=== PATIENT | female | born 1965 | race Caucasian/White ===

== ENCOUNTER 2018-09-15 13:45 | Observation (INO) ==
[2018-09-15] MEDS ORDERED: ASPIRIN 81 MG TAB.CHEW PO ONE (14:13)
[2018-09-15 14:14] LABS: Hematocrit 44.3 % (37.0-47.0); Hemoglobin 15.1 gm/dL (12.5-16.0); Mean Cell Volume 91.2 fl (78-100); Mean Corpuscular Hemoglobin 31.1 pg (27-31); Mean Corpuscular Hgb Conc 34.1 g/dl (32-36); Mean Platelet Volume 9.8 fl (8-12.5); Platelet Count 374 K/mm3 (150-450); Red Blood Count 4.86 M/mm3 (4.2-5.4); White Blood Count 14.5 K/mm3 (4.0-10.5)
--- NOTE | 2018-09-15 14:14 | ERNOTE ---
Chest Pain/Cardiac HPI Date of Service: 09/15/18 Chief Complaint: Chest Pain Time Seen by Provider: 09/15/18 14:01 Source: patient, RN notes reviewed, past records Exam Limitations: no limitations Immunizations: IMMUNIZATION HX Immunizations Up to Date Yes History of Influenza Vaccine No Hx Pneumococcal Vaccination No Allergies/Adverse Reactions: Allergies erythromycin base Allergy (Intermediate, Verified 08/04/18 09:27) severe nausea, and vomiting strawberry Allergy (Intermediate, Verified 08/04/18 09:27) rash seasonal allergies Adverse Reaction (Intermediate, Uncoded 03/17/18 15:35) sneezing, rhinitis Home Medications: HOME MEDICATIONS Multivitamin [One Daily Essential] 1 ea PO DAILY 01/08/16 [Last Taken Unknown] blood sugar diagnostic strips See Dose Instructions .ROUTE .MEDSUPPLY #100 ea 02/11/18 [Last Taken Unknown] insulin detemir (U- 100) 100 unit/mL subcutaneous solution 45 unit SUB-Q BID #10 ml 02/11/18 [Last Taken Unknown] aspirin 81 mg tablet,delayed release 81 mg PO DAILY 03/17/18 [Last Taken Unknown] cetirizine 10 mg tablet 10 mg PO HS tab 03/17/18 [Last Taken Unknown] cholecalciferol (vitamin D3) 2,000 unit capsule 2,000 unit PO DAILY 03/17/18 [Last Taken Unknown] clopidogrel 75 mg tablet 75 mg PO DAILY 03/17/18 [Last Taken Unknown] fluticasone 50 mcg/actuation nasal spray,suspension 1 spray BENY DAILY PRN 03/17/18 [Last Taken Unknown] ipratropium 20 mcg-albuterol 100 mcg/actuation mist for inhalation 1 puff IH .COMPLEX 03/17/18 [Last Taken Unknown] lancets 28 gauge See Dose Instructions .ROUTE .MEDSUPPLY #25 ea 03/17/18 [Last Taken Unknown] lisinopril 5 mg tablet 5 mg PO HS tab 03/17/18 [Last Taken Unknown] blood-glucose meter kit See Dose Instructions .ROUTE .MEDSUPPLY #1 ea 05/10/18 [Last Taken Unknown] insulin lispro (U- 100) 100 unit/mL subcutaneous solution 22 unit SUB-Q AC #10 ml 05/10/18 [Last Taken Unknown] insulin syringe with safety needle 0.5 mL 30 gauge x 12/08" See Dose Instructions .ROUTE .MEDSUPPLY #500 ea 05/12/18 [Last Taken Unknown] metformin 500 mg tablet 1,000 mg PO BID #180 tab 05/12/18 [Last Taken Unknown] meloxicam 15 mg tablet 15 mg PO DAILY #90 tab 05/13/18 [Last Taken Unknown] atorvastatin 40 mg tablet 40 mg PO HS #30 tab 07/27/18 [Last Taken Unknown] gabapentin 300 mg capsule 300 mg PO QPM #30 cap 08/04/18 [Last Taken Unknown] gabapentin 600 mg tablet 600 mg PO TID #90 tab 08/04/18 [Last Taken Unknown] alprazolam 1 mg tablet 1 mg PO .QD PRN #30 tab 08/31/18 [Last Taken Unknown] lamotrigine 200 mg tablet 300 mg PO DAILY #45 tab 08/31/18 [Last Taken Unknown] sertraline 100 mg tablet See Rx Instructions PO DAILY 21 Days #26 tab 08/31/18 [Last Taken Unknown] venlafaxine ER 37.5 mg capsule,extended release 24 hr See Rx Instructions PO DAILY #60 cap 08/31/18 [Last Taken Unknown] Narrative: Tessa is a 53 year old female brought to the ED from the clinic for chest pain. This began early this morning. Her blood sugar was 49 at that time. She ate and felt better for a short time, but then her pain returned. She was to be seen for a routine visit today and had been fasting for lab work. She reports having anxiety about going to the doctor. She has had chest pain related to panic attacks in the past, but she has also had a CA. Date (Duration): 09/15/18 Time (Timing): 04:00 Timing: constant Severity/Quality: moderate, aching Location: substernal Chest Pain Radiation: no radiation Activities at Onset: none Modifying Factors - Improves: Present: eating Modifying Factors - Worsens: Present: breathing, coughing Nitro Today/Relief: no nitro taken today Aspirin Treatment Today: 81 mg x 1 Associated Symptoms: Present: denies symptoms Prior Chest Pain/Cardiac Workup: Reports: heart attack Prior Treatment: Denies: recently seen Review of Systems - Review of Systems Constitutional: Absent: recent illness, fever, chills EYE: Present: no symptoms reported ENT: Absent: nose congestion, sore throat Respiratory: Absent: shortness of breath, cough Cardiology: Present: chest pain. Absent: palpitations, syncope, edema Gastrointestinal/Abdominal: Absent: nausea, vomiting, abdominal pain Genitourinary: Absent: frequency, dysuria Musculoskeletal: Absent: muscle pain, joint pain Skin: Absent: rash, lesions Neurological: Absent: headache, dizziness/light-headedness Endocrine: Present: no symptoms reported Hematologic/Lymphatic: Absent: easy bruising, easy bleeding Psych: Present: anxiety Medical History (Last Reviewed 09/15/18 @ 15:53 by Chitra De La Paz NP) Borderline personality disorder (Chronic) Per patient history PTSD (post-traumatic stress disorder) (Chronic) Tobacco abuse (Chronic) PAD (peripheral artery disease) (Chronic) Diabetic neuropathy (Chronic) Onset Date: ~1989 Diabetes mellitus, type II (Chronic) Surgical History: Surgical History (Last Reviewed 09/15/18 @ 15:53 by Chitra De La Paz NP) History of appendectomy History of cholecystectomy History of heart artery stent Family History: Family History (Last Reviewed 09/15/18 @ 15:53 by Chitra De La Paz NP) Mother , 81 Hypertension Diabetes Coronary artery disease stents Arthritis History of back surgery Sister , 59 Diabetes Hypertension, Onset Age: 55 heart problems Depression, Onset Age: 49 Father , 70 Diabetes Hypertension Coronary artery disease Alzheimers disease Social History: Preferred Language Monegasque Smoking Status Current every day smoker Smoking packs per day 1.5 Psych History Hx of Bipolar Disorder Alcohol Use rarely Drug Use none (Last Updated 09/05/18 @ 16:58 by GONZALO Malone) No Social History Section defined Physical Exam - Physical Exam General Appearance: Present: alert, no apparent distress, obese Head Exam: Present: normal inspection Eye Exam: Normal inspection: bilateral Ears, Nose, Throat: Present: normal ENT inspection, normal pharynx Neck: Present: normal inspection, nontender, supple, full range of motion Respiratory: Present: no respiratory distress, normal breath sounds, no accessory muscle use, chest nontender, lungs clear Cardiovascular/Chest: Present: regular rate, rhythm, no murmur, normal peripheral pulses Gastrointestinal/Abdominal: Present: nontender, nondistended, soft Extremity Exam: Present: normal inspection, no edema Neurological Exam: Present: alert, oriented, normal mood/affect, no mo tor/sensory deficits Skin Exam: Present: normal color, warm/dry Progress - Results and Orders Patient's Lab Results:: I have reviewed the patient's lab results. - Vital Signs Patient's Vital Signs:: I have reviewed the patient's vital signs. Vital Signs: Vital Signs 09/15/18 13:53 09/15/18 13:57 Temperature 36.6 C Pulse Rate 89 90 Respiratory Rate 20 O2 Sat by Pulse Oximetry 96 - EKG EKG #1 EKG: NSR, no ST T wave changes - from 01/08/16 EKG read: Reviewed by me - X-Ray X-Ray #1 X-Ray: chest Interpretation: Reviewed by me X-ray Comments: No acute cardiopulmonary process noted - Progress/Reassessment Chief Complaint: Chest Pain Progress:: Improved Plan - Plan Plan: Blood glucose was initially 56. The patient ate and this improved, but she continued to have chest pain. She was given nitro sublingual x3. The pain improved from a 5 to a 2. Initial troponin and EKG were unremarkable. WBC is elevated at 14,500 but after reviewing her chart this appears to be chronic. Due to her prior cardiac history, she will be admitted to observation status to Dr. Nagy (her PCP) to r/o CA. Departure Clinical Impression: Chest pain, rule out acute myocardial infarction - Departure Disposition: Still a patient Condition: Stable Referrals: Tessa Nagy MD [Primary Care Provider] -
[2018-09-15 14:17] LABS: Total Cells Counted 100
[2018-09-15] MEDS: NITROGLYCERIN 0.4 MG/TAB BTL SL PRN ×3 (14:19→14:56)
[2018-09-15 14:30] LABS: ALT 60 U/L (19-67); AST 48 U/L (0-48); Albumin * 3.4 gm/dl (3.4-5.0); Alkaline Phosphatase * 157 U/L (50-170); Anion Gap 16.7 mmol/L (6.8-13.8); BUN/Creatinine Ratio 12.7 (9.0-21.6); Bilirubin, Total 0.1 mg/dL (0.0-1.1); Blood Urea Nitrogen 9 mg/dL (3-23); Ca. Corrected For Albumin 9.9 mg/dL (8.4-10.2); Calcium * 9.7 mg/dL (7.9-10.9); Carbon Dioxide 26.8 mmol/L (24-32.6); Chloride 104 mmol/L (97-106); Glucose * 70 mg/dL (70-110); Potassium 3.5 mmol/L (3.4-4.6); Sodium 144 mmol/L (132-142); Total Protein 7.1 gm/dL (6.2-8.2); Troponin I Less than 0.017 ng/mL (0.00-0.10)
[2018-09-15 14:37] LABS: Atypical (Reactive) Lymph 18 % (0-2); Eosinophil 1 % (0-3); Lymphocyte 39 % (20-51); Monocyte 3 % (0-9); Neutrophil 39 % (42-75); Neutrophil # 5.7 K/mm3 (1.3-6.0)
[2018-09-15 14:38] LABS: Platelet Estimate Normal (NORMAL)
[2018-09-15 14:40] LABS: RBC Morphology Normal (NORMAL)
[2018-09-15 15:46] LABS: Urine Bilirubin Negative (NEGATIVE); Urine Ketone Negative (NEGATIVE); Urine Nitrite Negative (NEGATIVE); Urine Protein Negative (NEGATIVE); Urine Specific Gravity <=1.005 SP.GR. (1.005-1.010); Urine Urobilinogen Normal (NORMAL); Urine pH 6.5 pH (5.0-7.0)
[2018-09-15 15:54] LABS: Urine Appearance Clear (CLEAR); Urine Bacteria None Seen; Urine Blood 5 /ul (NEGATIVE); Urine Color Yellow; Urine RBC 0-5 /hpf (0-5); Urine WBC None Seen /hpf (0-5)
[2018-09-15] MEDS ORDERED: ACETAMINOPHEN 500 MG TABLET PO PRN (17:04)
--- NOTE | 2018-09-15 17:33 | HP ---
Chief Complaint - Chief Complaint Date of Service: 09/15/18 Time of Service: 17:21 Chief Complaint: I have chest pain and shortness of breath since this morning. History of Present Illness: 53-year-old female with past medical history of hypertension, peripheral artery disease, diabetic neuropathy, hyperlipidemia, coronary artery disease, morbid obesity, active smoker, depression, chronic pain, anxiety disorder, COPD, was brought to the ER from her primary care physician's office due to chest pain 6 out of 10 in intensity accompanied by shortness of breath. Patient reports that the chest pain started early this morning after waking up and preparing to go to her doctor's office for scheduled visit. Patient started fasting since yesterday anticipating lab work in the morning and says that she was more anxious than usual due to her fear of doctors offices. She says shortly after waking up she started having retrosternal chest pain right in the middle of the chest but the radiating under her left breast into her left flank, accompanied by shortness of breath of intermittent nature. She proceeded to go to her doctor's office but when she got there she suddenly became dizzy and her chest pain intensified. Patient was taken to the ER where EKG was performed which did not demonstrate any concerning abnormalities and a full cardiac workup was ordered. Medical History (Last Reviewed 09/15/18 @ 16:50 by Viola Newberry RN) Borderline personality disorder (Chronic) Per patient history PTSD (post-traumatic stress disorder) (Chronic) Tobacco abuse (Chronic) PAD (peripheral artery disease) (Chronic) Diabetic neuropathy (Chronic) Onset Date: ~1989 Diabetes mellitus, type II (Chronic) Surgical History: Surgical History (Last Reviewed 09/15/18 @ 16:50 by Viola Newberry RN) History of appendectomy History of cholecystectomy History of heart artery stent Family History: Family History (Last Reviewed 09/15/18 @ 16:50 by Viola Newberry RN) Mother , 81 Hypertension Diabetes Coronary artery disease stents Arthritis History of back surgery Sister , 59 Diabetes Hypertension, Onset Age: 55 heart problems Depression, Onset Age: 49 Father , 70 Diabetes Hypertension Coronary artery disease Alzheimers disease Social History: Patient Lives/Resources Home Utilized Preferred Language Tuval[place] Do you have any restoration or No cultural preference? Smoking Status Current every day smoker Have you smoked in the past 12 Yes months Smoking packs per day 1.5 Do you dip or chew tobacco No Psych History Hx of Bipolar Disorder Alcohol Use rarely Drug Use none (Last Updated 09/05/18 @ 16:58 by GONZALO Malone) No Social History Section defined Peds Patient Hx - Developmental: No Pertinent Hx Peds Patient Hx - Medical: No Pertinent Hx Peds Patient Hx - Cardiac/Respiratory: No Pertinent Hx Peds Patient Hx - Surgical: No Surgical History Patient History - Cancer: No Hx of Cancer Review Of Systems (GEN) - Review of Systems Generalized/Overall Review: Present: No Symptoms Reported EENTM: Present: No Symptoms Reported Respiratory: Present: Shortness of Breath Cardiac: Present: Chest Pain Abdominal: Present: No Symptoms Reported Genitourinary: Present: No Symptoms Reported Musculoskeletal: Present: No Symptoms Reported Neurological: Present: Anxiety Skin: Present: No Symptoms Reported Immunizations: IMMUNIZATION HX Immunizations Up to Date Yes History of Influenza Vaccine No Hx Pneumococcal Vaccination No Allergies/Adverse Reactions: Allergies Allergy/AdvReac Type Severity Reaction Status Date / Time erythromycin base Allergy Intermediate severe Verified 08/04/18 09:27 nausea, and vomiting strawberry Allergy Intermediate rash Verified 08/04/18 09:27 seasonal allergies AdvReac Intermediate sneezing, Uncoded 03/17/18 15:35 rhinitis Home Medications: HOME MEDICATIONS Multivitamin [One Daily Essential] 1 ea PO DAILY 01/08/16 [Last Taken Unknown] blood sugar diagnostic strips See Dose Instructions .ROUTE .MEDSUPPLY #100 ea 02/11/18 [Last Taken Unknown] insulin detemir (U- 100) 100 unit/mL subcutaneous solution 45 unit SUB-Q BID #10 ml 02/11/18 [Last Taken Unknown] aspirin 81 mg tablet,delayed release 81 mg PO DAILY 03/17/18 [Last Taken Unknown] cetirizine 10 mg tablet 10 mg PO HS tab 03/17/18 [Last Taken Unknown] cholecalciferol (vitamin D3) 2,000 unit capsule 2,000 unit PO DAILY 03/17/18 [Last Taken Unknown] clopidogrel 75 mg tablet 75 mg PO DAILY 03/17/18 [Last Taken Unknown] fluticasone 50 mcg/actuation nasal spray,suspension 1 spray BENY DAILY PRN 03/17/18 [Last Taken Unknown] ipratropium 20 mcg-albuterol 100 mcg/actuation mist for inhalation 1 puff IH .COMPLEX 03/17/18 [Last Taken Unknown] lancets 28 gauge See Dose Instructions .ROUTE .MEDSUPPLY #25 ea 03/17/18 [Last Taken Unknown] lisinopril 5 mg tablet 5 mg PO HS tab 03/17/18 [Last Taken Unknown] blood-glucose meter kit See Dose Instructions .ROUTE .MEDSUPPLY #1 ea 05/10/18 [Last Taken Unknown] insulin lispro (U- 100) 100 unit/mL subcutaneous solution 22 unit SUB-Q AC #10 ml 05/10/18 [Last Taken Unknown] insulin syringe with safety needle 0.5 mL 30 gauge x 12/08" See Dose Instructions .ROUTE .MEDSUPPLY #500 ea 05/12/18 [Last Taken Unknown] metformin 500 mg tablet 1,000 mg PO BID #180 tab 05/12/18 [Last Taken Unknown] meloxicam 15 mg tablet 15 mg PO DAILY #90 tab 05/13/18 [Last Taken Unknown] atorvastatin 40 mg tablet 40 mg PO HS #30 tab 07/27/18 [Last Taken Unknown] gabapentin 600 mg tablet 600 mg PO TID #90 tab 08/04/18 [Last Taken Unknown] lamotrigine 200 mg tablet 300 mg PO DAILY #45 tab 08/31/18 [Last Taken Unknown] Alprazolam 1 mg PO DAILY PRN 09/15/18 [Last Taken Unknown] Sertraline HCl [Zoloft] 100 mg PO DAILY 09/15/18 [Last Taken Unknown] Exam - Exam Vital Signs: Vital Signs - Last Taken Temp 36.5 C 09/15/18 16:50 Pulse 88 09/15/18 16:50 Resp 16 09/15/18 16:50 BP 181/81 H 09/15/18 16:50 Pulse Ox 92 L 09/15/18 16:50 Constitutional: Present: Alert, Oriented x3, Cooperative, Well developed, Well nourished, No distress, Morbidly obese ENT Exam: Present: normal ENT inspection, hearing grossly normal, pharynx normal, TMs normal Eye Exam: bilateral eye: normal inspection, PERRL, EOMI Neck: Present: non-tender, full range of motion, supple, normal inspection, trachea midline Back Exam: Present: normal inspection, no CVA tenderness, no vertebral tenderness Breasts: Present: Exam deferred Respiratory: Present: no respiratory distress, crackles Cardiovascular/Chest: Present: regular rate, rhythm, no chest tenderness, edema - Bilateral pedal edema Peripheral Pulses: carotid (R): 3+, carotid (L): 3+, femoral (R): 3+, femoral (L): 3+, dorsalis-pedis (R): 3+, dorsalis-pedis (L): 2+, radial (R): 3+, radial (L): 3+ Abdomen: Present: Normal bowel sounds, soft, nontender, nondistended, no rebound tenderness, no hepatospenomegaly, no masses, obese /Rectal: Present: Exam deferred Extremity: Present: normal range of motion, non-tender, normal inspection, no calf tenderness, pedal edema Skin Exam: Present: normal color, warm/dry, no cyanosis Lymphatic: Present: no adenopathy Neurologic: Present: manager nursing home II-XII nml as tested, normal cerebellar test, no motor/sensory deficits, alert, normal mood/affect, oriented x 3 Appearance: Present: appropriate appearance, appropriate insight, neat, no memory impairment Eye contact: Present: cooperative, good eye contact, normal speech Thoughts: Present: normal thought pattern Diagnostic Studies: Abnormal Lab Results 09/15/18 09/15/18 09/15/18 Range/Units 14:05 14:05 15:39 WBC 14.5 H (4.0-10.5) K/mm3 MCH 31.1 H (27-31) pg Neutrophils % (Manual) 39 L (42-75) % Lymphocytes # (Manual) 5.7 H (1.5-3.5) k/mm3 Atypic/Reactive Lymphs 18 H (0-2) % Sodium 144 H (132-142) mmol/L Plasma Sodium 144 H (130-142) mmol/L Anion Gap 16.7 H (6.8-13.8) mmol/L Urine Blood 5 H (NEGATIVE) /ul Laboratory Results WBC 14.5 K/mm3 (4.0-10.5) H 09/15/18 14:05 RBC 4.86 M/mm3 (4.2-5.4) 09/15/18 14:05 Hgb 15.1 gm/dL (12.5-16.0) 09/15/18 14:05 Hct 44.3 % (37.0-47.0) 09/15/18 14:05 MCV 91.2 fl (78-100) 09/15/18 14:05 MCH 31.1 pg (27-31) H 09/15/18 14:05 MCHC 34.1 g/dl (32-36) 09/15/18 14:05 RDW 13.0 % (11.5-14.0) 09/15/18 14:05 Plt Count 374 K/mm3 (150-450) 09/15/18 14:05 MPV 9.8 fl (8-12.5) 09/15/18 14:05 Neutrophils % (Manual) 39 % (42-75) L 09/15/18 14:05 Lymphocytes % (Manual) 39 % (20-51) 09/15/18 14:05 Monocytes % (Manual) 3 % (0-9) 09/15/18 14:05 Eosinophils % (Manual) 1 % (0-3) 09/15/18 14:05 Neutrophils # (Manual) 5.7 K/mm3 (1.3-6.0) 09/15/18 14:05 Lymphocytes # (Manual) 5.7 k/mm3 (1.5-3.5) H 09/15/18 14:05 Monocytes # (Manual) 0.4 k/mm3 (0.0-1.0) 09/15/18 14:05 Eosinophils # (Manual) 0.1 k/mm3 (0.0-0.7) 09/15/18 14:05 Atypic/Reactive Lymphs 18 % (0-2) H 09/15/18 14:05 Platelet Estimate Normal (NORMAL) 09/15/18 14:05 RBC Morphology Normal (NORMAL) 09/15/18 14:05 D-Dimer 0.32 ug/mL (0.19-0.49) 09/15/18 14:05 Sodium 144 mmol/L (132-142) H 09/15/18 14:05 Plasma Sodium 144 mmol/L (130-142) H 09/15/18 14:05 Potassium 3.5 mmol/L (3.4-4.6) 09/15/18 14:05 Chloride 104 mmol/L (97-106) 09/15/18 14:05 Carbon Dioxide 26.8 mmol/L (24-32.6) 09/15/18 14:05 Anion Gap 16.7 mmol/L (6.8-13.8) H 09/15/18 14:05 BUN 9 mg/dL (3-23) 09/15/18 14:05 Creatinine 0.71 mg/dL (0.4-1.4) 09/15/18 14:05 Est GFR (Non-Af Amer) 91 mL/min (60-130) 09/15/18 14:05 BUN/Creatinine Ratio 12.7 (9.0-21.6) 09/15/18 14:05 Random Glucose 70 mg/dL (70-110) 09/15/18 14:05 Calcium 9.7 mg/dL (7.9-10.9) 09/15/18 14:05 Calcium Adj for Albumin 9.9 mg/dL (8.4-10.2) 09/15/18 14:05 Total Bilirubin 0.1 mg/dL (0.0-1.1) 09/15/18 14:05 AST 48 U/L (0-48) 09/15/18 14:05 ALT 60 U/L (19-67) 09/15/18 14:05 Alkaline Phosphatase 157 U/L (50-170) 09/15/18 14:05 Troponin I Less than 0.017 ng/mL (0.00-0.10) 09/15/18 14:05 Total Protein 7.1 gm/dL (6.2-8.2) 09/15/18 14:05 Albumin 3.4 gm/dl (3.4-5.0) 09/15/18 14:05 Urine Color Yellow 09/15/18 15:39 Urine Appearance Clear (CLEAR) 09/15/18 15:39 Urine pH 6.5 pH (5.0-7.0) 09/15/18 15:39 Ur Specific [place] <=1.005 SP.GR. (1.005-1.010) 09/15/18 15:39 Urine Protein Negative mg/dL (NEGATIVE) 09/15/18 15:39 Urine Glucose (UA) Negative mg/dL (NEGATIVE) 09/15/18 15:39 Urine Ketones Negative mg/dL (NEGATIVE) 09/15/18 15:39 Urine Blood 5 /ul (NEGATIVE) H 09/15/18 15:39 Urine Nitrate Negative (NEGATIVE) 09/15/18 15:39 Urine Bilirubin Negative mg/dl (NEGATIVE) 09/15/18 15:39 Urine Urobilinogen Normal EU/dl (NORMAL) 09/15/18 15:39 Ur Leukocyte Esterase Negative /ul (NEGATIVE) 09/15/18 15:39 Urine RBC 0-5 /hpf (0-5) 09/15/18 15:39 Urine WBC None seen /hpf (0-5) 09/15/18 15:39 Ur Epithelial Cells 0-5 /hpf (0-5) 09/15/18 15:39 Urine Bacteria None seen (NONE) 09/15/18 15:39 Urine Culture Comments No culture indicated 09/15/18 15:39 Assessment/Plan - Narrative Narrative: After careful evaluation of the patient and the medical record, decision to admit to observation was taken given the presentation of the patient's chest pain accompanied by shortness of breath. So far EKG cardiac troponin as well as chest x-rays are negative, but given the patient's extensive cardiac and peripheral artery disease history we will keep her overnight to run a second set of cardiac troponin. She will be reevaluated in the morning for possible discharge and a subsequent stress test. - Assessment/Plan (1) Chest pain due to CAD Problem: Acute (2) Ruled out for myocardial infarction Problem: Acute
[2018-09-15] MEDS ORDERED: ALBUTEROL SULFATE/IPRATROPIUM 3 ML NEBU IH PRN (17:36)
[2018-09-15] MEDS ORDERED: ALPRAZolam 1 MG TABLET PO PRN (18:14)
[2018-09-15] MEDS ORDERED: metFORMIN HCL 500 MG TABLET PO SCH (19:00)
[2018-09-15] MEDS: INSULIN LISPRO 100 UNITS/ML VIAL SC SCH (19:14)
[2018-09-15] MEDS ORDERED: ROSUVASTATIN CALCIUM 20 MG TABLET PO SCH (21:00)
[2018-09-15] MEDS ORDERED: LORATADINE 10 MG TABLET PO SCH (21:00)
[2018-09-15] MEDS ORDERED: LISINOPRIL 5 MG TABLET PO SCH (21:00)
[2018-09-15] MEDS ORDERED: ROSUVASTATIN CALCIUM 10 MG TABLET ONE (21:10)
[2018-09-15] MEDS ORDERED: VENLAFAXINE HCL 37.5 MG CAP.SR.24H PO SCH (22:00)
[2018-09-15] MEDS: GABAPENTIN 600 MG TABLET PO SCH (22:08)
[2018-09-15] MEDS: INSULIN DETEMIR 100 UNITS/ML VIAL SC SCH (22:10)
[2018-09-15] MEDS ORDERED: lamoTRIgine 100 MG TABLET PO SCH (22:45)
[2018-09-16] MEDS: INSULIN LISPRO 100 UNITS/ML VIAL SC SCH (07:39)
[2018-09-16] MEDS: INSULIN DETEMIR 100 UNITS/ML VIAL SC SCH (08:04)
[2018-09-16] MEDS: GABAPENTIN 600 MG TABLET PO SCH (08:06)
[2018-09-16] MEDS ORDERED: CHOLECALCIFEROL 1,000 UNIT CAPSULE PO SCH (09:00)
[2018-09-16] MEDS ORDERED: ASPIRIN 81 MG TABLET.DR PO SCH (09:00)
[2018-09-16] MEDS ORDERED: MULTIVIT-MIN/FA/LYCOPEN/LUTEIN 1 TAB TABLET PO SCH (09:00)
[2018-09-16] MEDS ORDERED: VENLAFAXINE HCL 37.5 MG CAP.SR.24H PO SCH (09:00)
[2018-09-16] MEDS ORDERED: CLOPIDOGREL BISULFATE 75 MG TABLET PO SCH (09:00)
[2018-09-16] MEDS ORDERED: lamoTRIgine 100 MG TABLET PO SCH (09:00)
[2018-09-16] MEDS ORDERED: SERTRALINE HCL 100 MG TABLET PO SCH (09:00)
[2018-09-16] MEDS ORDERED: MELOXICAM 15 MG TABLET PO SCH (09:00)
--- NOTE | 2018-09-16 09:29 | DS ---
(1) Chest pain due to CAD Problem: Acute (2) Ruled out for myocardial infarction Problem: Acute Description of Stay: 53-year-old female admitted for chest pain accompanied by shortness of breath that started yesterday morning while at her house was evaluated at [facility] and was found to be afebrile in no acute distress. Patient denies any recurrence of her chest pain since being hospitalized or shortness of breath and reports feeling better. She says there is complete resolution of her chest pain or chest discomfort and wishes to go home. Serial cardiac enzymes are negative as well as an in-hospital EKG negative for OH. Patient was instructed to make an appointment with my office since I am her PCP. She will also undergo a outpatient stress test. She will also be referred to her leather patcher given her extensive history of heart disease. Patient was also instructed to resume her usual medications and to go to the ER if there is recurrence of chest pain.. We will now discharge her home. Procedures Performed: none Results and Findings: Lab Pending Results 09/15/18 14:05: WBC 14.5 H, RBC 4.86, Hgb 15.1, Hct 44.3, MCV 91.2, MCH 31.1 H, MCHC 34.1, RDW 13.0, Plt Count 374, MPV 9.8, Neutrophils % (Manual) 39 L, Lymphocytes % (Manual) 39, Monocytes % (Manual) 3, Eosinophils % (Manual) 1, Neutrophils # (Manual) 5.7, Lymphocytes # (Manual) 5.7 H, Monocytes # (Manual) 0.4, Eosinophils # (Manual) 0.1, Atypic/Reactive Lymphs 18 H, Platelet Estimate Normal, RBC Morphology Normal 09/15/18 14:05: Sodium 144 H, Plasma Sodium 144 H, Potassium 3.5, Chloride 104, Carbon Dioxide 26.8, Anion Gap 16.7 H, BUN 9, Creatinine 0.71, Est GFR (Non-Af Amer) 91, BUN/Creatinine Ratio 12.7, Random Glucose 70, Calcium 9.7, Calcium Adj for Albumin 9.9, Total Bilirubin 0.1, AST 48, ALT 60, Alkaline Phosphatase 157, Troponin I Less than 0.017, Total Protein 7.1, Albumin 3.4 09/15/18 14:05: D-Dimer 0.32 09/15/18 15:39: Urine Color Yellow, Urine Appearance Clear, Urine pH 6.5, Ur Specific [place] <=1.005, Urine Protein Negative, Urine Glucose (UA) Negative, Urine Ketones Negative, Urine Blood 5 H, Urine Nitrate Negative, Urine Bilirubin Negative, Urine Urobilinogen Normal, Ur Leukocyte Esterase Negative, Urine RBC 0-5, Urine WBC None seen, Ur Epithelial Cells 0-5, Urine Bacteria None seen, Urine Culture Comments No culture indicated 09/15/18 19:56: Troponin I 0.018 09/16/18 07:13: Troponin I Less than 0.017 Discharge Location: Home Disposition: Home self-care Condition: Good Face to Face Encounter completed per [facility] Guidelines: No Discharge Activity: Activity as tolerated Discharge Diet: Consistent carbs Referrals: Tessa Nagy MD [Primary Care Provider] - Additional Patient Instructions (free text): -Please make TCM appointment unless senior care discharge. Thank you! Sonia @ [phone]. Complete Home Medications List: Complete Home Medication List: Multivitamin [One Daily Essential] 1 ea PO DAILY 01/08/16 insulin detemir (U- 100) 100 unit/mL subcutaneous solution 45 unit SUB-Q BID #10 ml 02/11/18 aspirin 81 mg tablet,delayed release 81 mg PO DAILY 03/17/18 cetirizine 10 mg tablet 10 mg PO HS tab 03/17/18 cholecalciferol (vitamin D3) 2,000 unit capsule 2,000 unit PO DAILY 03/17/18 clopidogrel 75 mg tablet 75 mg PO DAILY 03/17/18 fluticasone 50 mcg/actuation nasal spray,suspension 1 spray EBNY DAILY PRN 03/17/18 ipratropium 20 mcg-albuterol 100 mcg/actuation mist for inhalation 1 puff IH QID 03/17/18 lisinopril 5 mg tablet 5 mg PO HS tab 03/17/18 insulin lispro (U- 100) 100 unit/mL subcutaneous solution 22 unit SUB-Q AC #10 ml 05/10/18 metformin 500 mg tablet 1,000 mg PO BID #180 tab 05/12/18 meloxicam 15 mg tablet 15 mg PO DAILY #90 tab 05/13/18 atorvastatin 40 mg tablet 40 mg PO HS #30 tab 07/27/18 gabapentin 600 mg tablet 600 mg PO TID #90 tab 08/04/18 lamotrigine 200 mg tablet 300 mg PO DAILY #45 tab 08/31/18 Alprazolam 1 mg PO DAILY PRN 09/15/18 Venlafaxine HCl [Effexor Xr] 37.5 mg PO QPM 09/15/18 Sertraline HCl [Zoloft] 100 mg PO DAILY tab 09/16/18
[2018-09-16 12:21] VITALS: BP 149/60
== END 2018-09-16 11:19 | disposition home or self-care (01) ==
LOC: ER 13:45 → MS 13:45
PROVIDERS: ADMIT Family Medicine; ATTEND Family Medicine
DX: R07.9 Chest pain, unspecified
CPT/HCPCS: 36415; 71020; 71046; 80053; 81001; 84484; 85025; 85379; 93005; 96372; 99285; G0378